=== PATIENT | female | born 1970 | race Hispanic/Latino ===

== ENCOUNTER 2017-09-05 10:13 | Day surgery (SDC) | payer OTHER, SELFPAY ==
[2017-09-05 10:35] VITALS: BMI 31.3
[2017-09-05] MEDS ORDERED: Sodium Chloride 0.9% 1,000 ML IV STA (10:53)
[2017-09-05] MEDS ORDERED: Etomidate 40 MG/20 ML ML IV ONE (11:18)
[2017-09-05] MEDS ORDERED: Succinylcholine 200 mg/10 ml Inj IV ONE (11:18)
[2017-09-05] MEDS ORDERED: Midazolam 2 MG/2 ML VIAL ONE (11:18)
[2017-09-05] MEDS ORDERED: Propofol 10 mg/ml Inj (20 ML) ONE ×2 (11:25→12:20)
[2017-09-05] MEDS ORDERED: Lactated Ringer's 1,000 ML IV SCH (11:30)
[2017-09-05 11:46] LABS: BASO # 0.03 K/mm3 (0.0-2.0); BASO % 0.5 % (0.0-3.0); EOS # 0.3 (0.0-0.7); EOS % 4.7 % (1.5-5.0); GRAN # 4.42 (1.4-6.5); HEMOGLOBIN 9.4 g/dL (12.0-16.0); LYMPH # 1.4 (1.2-3.4); LYMPH % 20.5 % (22.0-35.0); MEAN CORPUSCULAR HEMOGLOBIN 27.2 pg (25.0-35.0); MEAN CORPUSCULAR HGB CONC 31.3 g/dl (31.0-37.0); MEAN PLATELET VOLUME 9.2 fl (7.0-11.0); MONO # 0.5 (0.1-0.6); MONO % 7.3 % (1.0-6.0); RBC 3.45 10^6/uL (3.5-6.1); RED CELL DISTRIBUTION WIDTH 15.8 % (11.5-14.5); WHITE BLOOD COUNT 6.6 10^3/ul (4.5-11.0)
[2017-09-05 11:53] LABS: BLOOD UREA NITROGEN 11 mg/dL (7-21); CALCIUM 9.5 mg/dL (8.4-10.5); GFR AFRICAN-AMERICAN > 60; GFR NON-AFRICAN AMERICAN > 60
--- NOTE | 2017-09-05 12:00 | ED PDOC ---
Arrival/HPI - General Chief Complaint: Female Genitourinary Time Seen by Provider: 09/05/17 10:29 Historian: Patient - History of Present Illness Narrative History of Present Illness (Text): 09/05/17 10:50 A 47 year old female, whose past medical history includes thyroid disease and hypertension, presents to the emergency department complaining of vaginal bleeding for 1 month. Patient reports see COLORING ROOM MAN 2 days ago and was prescribed medication for bleeding. However, this week it has gotten progressively worse. Patient notes also experiencing associated weakness and lightheadedness, intermittent abdominal cramping, and blood clots in vaginal bleeding. No other complaints mentioned by patient. PMD: Dr. Priyank Briggs [facility] MAN: Dr. Vincenzo Nelson TRANSLATION used via [employer] translation service: #[id number] Time/Duration: Other (1 month) Past Medical History - Provider Review Nursing Documentation Reviewed: Yes - Infectious Disease Hx of Infectious Diseases: None - Tetanus Immunization Tetanus Immunization: Unknown - Reproductive Menopause: No - Cardiac Hx Pacemaker: No - Neurological Hx Paralysis: No - Endocrine/Metabolic Hx Hypothyroidism: Yes - Hematological/Oncological Hx Blood Transfusions: No - Musculoskeletal/Rheumatological Hx Musculoskeletal Disorders: No - Psychiatric Hx Emotional Abuse: No Hx Physical Abuse: No Hx Substance Use: No - Past Surgical History Past Surgical History: No Previous - Anesthesia Hx Anesthesia Reactions: No Hx Malignant Hyperthermia: No - Suicidal Assessment Feels Threatened In Home Enviroment: No Family/Social History - Physician Review Nursing Documentation Reviewed: Yes Family/Social History: No Known Family HX Smoking Status: Never Smoked Hx Alcohol Use: No Hx Substance Use: No Hx Substance Use Treatment: No Allergies/Home Meds Allergies/Adverse Reactions: Allergies No Known Allergies Allergy (Verified 12/12/11 07:05) Home Medications: Home Meds Medication Instructions Recorded Confirmed Nature Thyroid Half Grain 0 mg PO DAILY 09/05/17 09/05/17 Review of Systems - Physician Review All systems were reviewed & negative as marked: Yes - Review of Systems Gastrointestinal: Abdominal Pain (adbominal cramping) Genitourinary Female: Vaginal Bleeding (with blood clots) Neurological: Dizziness, Focal Weakness Physical Exam Vital Signs Reviewed: Yes Vital Signs Temp Pulse Resp BP Pulse Ox 09/05/17 15:09 97.9 F 84 20 138/89 94 L 09/05/17 14:06 97 09/05/17 14:00 97.9 F 74 18 142/97 H 97 09/05/17 13:49 98.2 F 60 17 120/75 100 09/05/17 13:35 98.2 F 63 17 129/65 100 09/05/17 13:20 98.2 F 63 17 135/84 100 09/05/17 13:05 98.2 F 71 17 134/84 100 09/05/17 12:50 98.2 F 78 16 136/84 100 09/05/17 12:00 97.8 F 91 H 20 148/90 97 09/05/17 11:33 82 18 160/103 H 100 09/05/17 11:18 98.9 F 98 H 18 191/100 H 100 09/05/17 10:51 98.1 F 100 H 18 186/120 H 98 Temperature: Afebrile Blood Pressure: Hypertensive Pulse: Regular Respiratory Rate: Normal Appearance: Positive for: Well-Appearing Pain Distress: None Mental Status: Positive for: Alert and Oriented X 3 - Systems Exam Head: Present: Atraumatic, Normocephalic Pupils: Present: PERRL Extroacular Muscles: Present: EOMI Conjunctiva: Present: Normal Mouth: Present: Moist Mucous Membranes Neck: Present: Normal Range of Motion Respiratory/Chest: Present: Clear to Auscultation, Good Air Exchange. No: Respiratory Distress, Accessory Muscle Use Cardiovascular: Present: Regular Rate and Rhythm, Normal S1, S2. No: Murmurs Abdomen: Present: Tenderness (lwoer abdominal tenderness). No: Guarding Back: Present: Normal Inspection Upper Extremity: Present: Normal Inspection. No: Cyanosis, Edema Lower Extremity: Present: Normal Inspection. No: Edema Neurological: Present: Other (experiences no lightheadedness when standing up) Skin: Present: Warm, Dry, Normal Color. No: Rashes Psychiatric: Present: Alert, Oriented x 3, Normal Insight, Normal Concentration Medical Decision Making ED Course and Treatment: 09/05/17 10:53 Impression: 47 year old female with vaginal bleeding and associated weakness and lightheadedness. Physical exam shows lower abdominal tenderness, no guarding. Differential Diagnosis included but are not limited to: Dysfunctional Urine Bleeding Plan: -- Labs -- Lactated Ringer IV -- IV Fluids -- Reassess and disposition Prior Visits: Notes and results from previous visits were reviewed. Patient was last seen in the emergency department on 06/26/2015 for moderate vaginal bleeding. Patient was discharged home. Progress Notes: Case discussed with Dr. Kowalski OBGYN, who requests patient to be admitted to [facility] for D&C. - Lab Interpretations Lab Results: 09/05/17 11:23 09/05/17 11:23 Lab Results 09/05/17 12:23: Urine HCG, Qual Negative 09/05/17 11:23: Blood Type A POSITIVE, Antibody Screen Negative, BBK History Checked No verified bt 09/05/17 11:23: PT 11.9, INR 1.03, APTT 28.1 09/05/17 11:23: Sodium 147, Potassium 4.3, Chloride 110 H, Carbon Dioxide 25, Anion Gap 17, BUN 11, Creatinine 0.6 L, Est GFR ( Amer) > 60, Est GFR ( Non-Af Amer) > 60, Random Glucose 99, Calcium 9.5 09/05/17 11:23: WBC 6.6 D, RBC 3.45 L, Hgb 9.4 L, Hct 30.0 L, MCV 87.0, MCH 27.2, MCHC 31.3, RDW 15.8 H, Plt Count 315, MPV 9.2, Gran % 67.0, Lymph % (Auto ) 20.5 L, Jerome % (Auto) 7.3 H, Eos % (Auto) 4.7, Baso % (Auto) 0.5, Gran # 4.42 , Lymph # (Auto) 1.4, Jerome # (Auto) 0.5, Eos # (Auto) 0.3, Baso # (Auto) 0.03 I have reviewed the lab results: Yes - Medication Orders Current Medication Orders: Acetaminophen (Tylenol 325mg Tab) 650 mg PO Q4H PRN PRN Reason: Pain, Mild (1-3) Lactated Ringer's (Lactated Ringer's) 1,000 mls @ 100 mls/hr IV .Q10H JENNIFER Last Admin: 09/05/17 11:36 Dose: 100 mls/hr eMAR Start Stop Document 09/05/17 11:36 GMD (Rec: 09/05/17 11:37 [id number] Intravenous Solution Start Date 09/05/17 Start Time 11:37 Sodium Chloride (Sodium Chloride 0.9%) 1,000 mls @ 100 mls/hr IV .Q10H JENNIFER Discontinued Medications Estrogens Conjugated (Premarin Iv) 25 mg IV ONCE ONE Stop: 09/05/17 12:55 Last Admin: 09/05/17 13:28 Dose: 25 mg Hydromorphone HCl (Dilaudid) 0.5 mg IVP Q15M PRN PRN Reason: Pain, severe (8-10) Stop: 09/05/17 14:51 Sodium Chloride (Sodium Chloride 0.9%) 1,000 mls @ 999 mls/hr IV .Q1H1M STA Stop: 09/05/17 11:53 Ondansetron HCl (Zofran Inj) 4 mg IVP ONCE PRN PRN Reason: Nausea/Vomiting Stop: 09/05/17 14:52 - Scribe Statement The provider has reviewed the documentation as recorded by the Kun Saravia Provider Scribe Attestation: All medical record entries made by the Mikieiblorena were at my direction and personally dictated by me. I have reviewed the chart and agree that the record accurately reflects my personal performance of the history, physical exam, medical decision making, and the department course for this patient. I have also personally directed, reviewed, and agree with the discharge instructions and disposition. Disposition/Present on Arrival - Present on Arrival Any Indicators Present on Arrival: No History of DVT/PE: No History of Uncontrolled Diabetes: No Urinary Catheter: No History of Decub. Ulcer: No History Surgical Site Infection Following: None - Disposition Have Diagnosis and Disposition been Completed?: Yes Diagnosis: Dysfunctional uterine bleeding, Hypertension Disposition: HOSPITALIZED Disposition Time: 11:22 Patient Plan: Admission Patient Problems: Current Active Problems Problem Status Onset Dysfunctional uterine bleeding Acute Hypertension Acute Condition: FAIR
[2017-09-05 12:15] LABS: INR 1.03 (0.93-1.08); PARTIAL THROMBOPLASTIN TIME 28.1 Seconds (25.1-36.5); PROTHROMBIN TIME 11.9 SECONDS (9.4-12.5)
[2017-09-05] MEDS ORDERED: HYDROmorphone 0.5 mg/0.5 ml ISec IVP PRN (12:51)
[2017-09-05] MEDS ORDERED: Sodium Chloride 0.9% 1,000 ML IV SCH (13:00)
[2017-09-05 14:06] VITALS: TEMP 97.9
[2017-09-05 15:10] VITALS: BP 138/89; PULSE 84; RESP 20; O2SAT 94
--- NOTE | 2017-09-05 22:42 | OP ---
PROCEDURE DATE: 09/05/2017 PREOPERATIVE DIAGNOSIS: Persistent and severe menorrhagia, resulting anemia. POSTOPERATIVE DIAGNOSIS: Persistent and severe menorrhagia, resulting anemia. PROCEDURE PERFORMED: Dilatation and curettage. SURGEON: Vincenzo Nelson MD. TYPE OF ANESTHESIA: General endotracheal. ESTIMATED BLOOD LOSS: 10 mL. FINDINGS: Uterus that was sounded to 9 cm. No fibroids palpated. Copious amounts of clots coming out of the vaginal area. DESCRIPTION OF PROCEDURE: After a long discussion was held with the patient and an informed consent was obtained and signed, patient was brought into the operating room. General endotracheal anesthesia was induced. The patient was prepped and draped in the usual sterile fashion. A weighted speculum was inserted into the vaginal vault. The anterior lip of the cervix was visualized and grasped with single-tooth tenaculum. The uterus was sounded and sounded to approximately to 9 cm. As a note, there were copious amounts of clots and blood, which were watery in nature, coming out of the cervix. The cervix was then dilated appropriately and a gentle curettage of the endometrial lining was taken. Clots were noted, removed, but it was felt that the lining of the uterus vascularity was not closing down. IV Premarin would be instilled in the recovery room. Once the procedure was terminated, all specimens were sent to Pathology for examination, the patient was awakened and sent to the Recovery Room. Vincenzo Nelson MD
== END 2017-09-05 15:41 | disposition home or self-care (01) ==
LOC: ED 10:13 → SDS 11:54
PROVIDERS: ATTEND Obstetrics & Gynecology Gynecology
DX: N92.0 Excessive and frequent menstruation with regular cycle (principal); N93.8 Other specified abnormal uterine and vaginal bleeding; D64.9 Anemia, unspecified; E03.9 Hypothyroidism, unspecified; I10 Essential (primary) hypertension
CPT/HCPCS: 58120; 80048; 84703; 85025; 85610; 85730; 86850; 86900; 88305; 99285; J0330; J1170; J1410; J2250; J2405; J2704; J2765; J3010; J7030; J7040; J7120 ×2

== ENCOUNTER 2018-01-23 17:21 | Emergency (ER) | payer OTHER ==
[2018-01-23 17:50] VITALS: RESP 18; BMI 27.4
[2018-01-23] MEDS ORDERED: DiphenhydrAMINE 50 mg/ml Inj IVP STA (18:10)
[2018-01-23 19:19] LABS: ALB/GLOB RATIO 1.3 (1.1-1.8); ALBUMIN 4.6 g/dL (3.0-4.8); ALT/SGPT 36 U/L (7-56); AST/SGOT 41 U/L (14-36); BLOOD UREA NITROGEN 12 mg/dL (7-21); CALCIUM 9.6 mg/dL (8.4-10.5); GFR AFRICAN-AMERICAN > 60; GFR NON-AFRICAN AMERICAN > 60
[2018-01-23 19:20] LABS: BASO # 0.04 K/mm3 (0.0-2.0); BASO % 0.4 % (0.0-3.0); EOS # 0.1 (0.0-0.7); EOS % 0.8 % (1.5-5.0); GRAN # 6.76 (1.4-6.5); GRAN % 74.4 % (50.0-68.0); HEMOGLOBIN 13.3 g/dL (12.0-16.0); LYMPH # 1.7 (1.2-3.4); LYMPH % 18.8 % (22.0-35.0); MEAN CORPUSCULAR HEMOGLOBIN 30.6 pg (25.0-35.0); MEAN CORPUSCULAR HGB CONC 34.7 g/dl (31.0-37.0); MEAN PLATELET VOLUME 9.4 fl (7.0-11.0); MONO # 0.5 (0.1-0.6); MONO % 5.6 % (1.0-6.0); RBC 4.35 10^6/uL (3.5-6.1); RED CELL DISTRIBUTION WIDTH 17.7 % (11.5-14.5); URINE BILIRUBIN NEGATIVE (NEGATIVE); URINE BLOOD NEGATIVE (NEGATIVE); URINE GLUCOSE (UA) NEGATIVE (NEGATIVE); URINE LEUKOCYTE ESTERASE NEGATIVE Leu/uL (NEGATIVE); URINE PROTEIN NEGATIVE mg/dL (<30 mg/dL); URINE UROBILINOGEN 0.2 E.U./dL (<1 E.U./dL); WHITE BLOOD COUNT 9.1 10^3/ul (4.5-11.0)
[2018-01-23 19:22] LABS: URINE APPEARANCE CLEAR (CLEAR); URINE COLOR YELLOW (YELLOW)
[2018-01-23 19:24] LABS: INR 0.96 (0.93-1.08); PARTIAL THROMBOPLASTIN TIME 29.3 Seconds (25.1-36.5); PROTHROMBIN TIME 10.9 SECONDS (9.4-12.5)
[2018-01-23 19:36] LABS: TROPONIN I < 0.01 ng/mL
--- NOTE | 2018-01-23 20:38 | ED PDOC ---
Arrival/HPI - General Chief Complaint: High Blood Pressure Time Seen by Provider: 01/23/18 17:46 Historian: Patient - History of Present Illness Narrative History of Present Illness (Text): 01/23/18 20:35 47yo female with past medical history of hypertension who present with complaint of right sided temporal and neck pain x 2days. she also report right lower leg pain. The friend who translated, states patient have had these symptoms intermittently for years. States she was seen by her PMD last week and all her lab result was negative. He notes that pt's PMD has been trying to control her BP with different antihypertensive. Her last Head CT was 4years ago. She have had the leg pain for over 6yrs, per the friend. She denies slurred speech, focal weakness, nuchal ridigity, visual acuity change, nausea, vomiting, chest pain, SOB, diaphoresis, dizziness, recent travel/surgery. States she took her BP medication today. Past Medical History - Provider Review Nursing Documentation Reviewed: Yes - Infectious Disease Hx of Infectious Diseases: None - Tetanus Immunization Tetanus Immunization: Unknown - Cardiac Hx Pacemaker: No - Neurological Hx Paralysis: No - Endocrine/Metabolic Hx Hypothyroidism: Yes - Hematological/Oncological Hx Blood Transfusions: No - Musculoskeletal/Rheumatological Hx Musculoskeletal Disorders: No - Psychiatric Hx Emotional Abuse: No Hx Physical Abuse: No Hx Substance Use: No - Past Surgical History Past Surgical History: No Previous - Anesthesia Hx Anesthesia Reactions: No Hx Malignant Hyperthermia: No - Suicidal Assessment Feels Threatened In Home Enviroment: No Family/Social History - Physician Review Nursing Documentation Reviewed: Yes Family/Social History: Unknown Family HX Smoking Status: Never Smoked Hx Alcohol Use: No Hx Substance Use: No Hx Substance Use Treatment: No Allergies/Home Meds Allergies/Adverse Reactions: Allergies No Known Allergies Allergy (Verified 12/12/11 07:05) Home Medications: Home Meds Medication Instructions Recorded Confirmed amLODIPine [Norvasc] 5 mg PO DAILY 01/23/18 01/23/18 Review of Systems - Physician Review All systems were reviewed & negative as marked: Yes - Review of Systems Constitutional: Normal Eyes: Normal ENT: Normal Respiratory: Normal Cardiovascular: Normal Gastrointestinal: Normal Genitourinary Female: Normal Musculoskeletal: Arthralgias (right leg pain) Skin: Normal Neurological: Headache. absent: Dizziness, Focal Weakness, Gait Changes, Speech Changes, Facial Droop Endocrine: Normal Hemo/Lymphatic: Normal Psychiatric: Normal Physical Exam Vital Signs Reviewed: Yes Vital Signs Temp Pulse Resp BP Pulse Ox 01/23/18 20:59 98.2 F 78 18 141/95 H 96 01/23/18 20:44 98.2 F 71 18 141/95 H 95 01/23/18 20:22 77 153/93 H 01/23/18 20:20 98.3 F 77 18 153/93 H 100 01/23/18 19:14 98.3 F 86 18 148/101 H 96 01/23/18 17:49 98.3 F 84 18 180/109 H 97 Temperature: Afebrile Blood Pressure: Hypertensive Pulse: Regular Respiratory Rate: Normal Appearance: Positive for: Well-Appearing, Non-Toxic, Comfortable Pain Distress: None Mental Status: Positive for: Alert and Oriented X 3 - Systems Exam Head: Present: Atraumatic, Normocephalic Pupils: Present: PERRL Extroacular Muscles: Present: EOMI Conjunctiva: Present: Normal Mouth: Present: Moist Mucous Membranes Neck: Present: Normal Range of Motion Respiratory/Chest: Present: Clear to Auscultation, Good Air Exchange. No: Respiratory Distress, Accessory Muscle Use Cardiovascular: Present: Regular Rate and Rhythm, Normal S1, S2. No: Murmurs Abdomen: No: Tenderness, Distention, Peritoneal Signs Back: Present: Normal Inspection Upper Extremity: Present: Normal Inspection. No: Cyanosis, Edema Lower Extremity: Present: CALF TENDERNESS (Right calf), NORMAL PULSES, Normal ROM, Neurovascularly Intact. No: Edema, Guido's Sign, Tenderness, Swelling, Temperature Abnormalties Neurological: Present: GCS=15, CN II-XII Intact, Speech Normal, Motor Func Grossly Intact, Normal Sensory Function, Normal Cerebellar Funct, Norm Deep Tendon Reflexes, Gait Normal, Memory Normal, Normal 2Pt Descrimination, Other ( No focal neurological deficit) Skin: Present: Warm, Dry, Normal Color. No: Rashes Psychiatric: Present: Alert, Oriented x 3, Normal Insight, Normal Concentration Medical Decision Making ED Course and Treatment: 01/23/18 20:32 PT present with stated history. She was neurologically intact in emergency department . Her BP improved slightly in emergency department after her headache improved with medication and she was given Clonidine. Her lab was unremarkable Pr US tech - Doppler was negative for DVT Head CT pending 01/23/18 20:39 IMPRESSION: No acute intracranial abnormalities. Result was DW both pt and the friend. She remained neurologically intact. Her headache improved. she had no meningeal signs in emergency department . Afebrile with no rash. The friend notes that pt is always worrying that something is wrong with her. This could be causing her stress and leading to her symptoms. The friend notes that she have a PMD and have been seeing the PMD for years now. States pt has been seen by the PMD for similar symptoms. She will be DC home. Referred to her PMD. - Lab Interpretations Lab Results: 01/23/18 18:51 01/23/18 18:51 Lab Results 01/23/18 18:51: Sodium 144, Potassium 4.0, Chloride 106, Carbon Dioxide 26, Anion Gap 16, BUN 12, Creatinine 0.8, Est GFR ( Amer) > 60, Est GFR (Non- Af Amer) > 60, Random Glucose 109, Calcium 9.6, Magnesium 2.1, Total Bilirubin 0.9, AST 41 H, ALT 36, Alkaline Phosphatase 42, Lactate Dehydrogenase 559, Total Creatine Kinase 478 H, CK-MB (CK-2) 4.0 H, CK-MB (CK-2) % Cancelled, Troponin I < 0.01, Total Protein 8.2, Albumin 4.6, Globulin 3.6, Albumin/ Globulin Ratio 1.3 01/23/18 18:51: Urine Color Yellow, Urine Appearance Clear, Urine pH 6.0, Ur Specific Johnson <= 1.005, Urine Protein Negative, Urine Glucose (UA) Negative, Urine Ketones 15 H, Urine Blood Negative, Urine Nitrate Negative, Urine Bilirubin Negative, Urine Urobilinogen 0.2, Ur Leukocyte Esterase Negative 01/23/18 18:51: PT 10.9, INR 0.96, APTT 29.3 01/23/18 18:51: WBC 9.1 D, RBC 4.35, Hgb 13.3 D, Hct 38.3, MCV 88.0, MCH 30.6 , MCHC 34.7, RDW 17.7 H, Plt Count 314, MPV 9.4, Gran % 74.4 H, Lymph % (Auto) 18.8 L, [place] % (Auto) 5.6, Eos % (Auto) 0.8 L, Baso % (Auto) 0.4, Gran # 6.76 H , Lymph # (Auto) 1.7, [place] # (Auto) 0.5, Eos # (Auto) 0.1, Baso # (Auto) 0.04 - RAD Interpretation Radiology Orders: 01/23/18 18:39 HEAD W/O CONTRAST [CT] Stat DUPLEX LOWER EXTRM VEIN RIGHT [US] Stat - Medication Orders Current Medication Orders: Discontinued Medications Acetaminophen (Tylenol 325mg Tab) 975 mg PO STAT STA Stop: 01/23/18 18:11 Last Admin: 01/23/18 18:36 Dose: 975 mg MAR Pain/Vitals Document 01/23/18 18:36 LA (Rec: 01/23/18 18:36 LA [facility]) Pain Reassessment Is This A Pain ReAssessment? No Sleep Is patient sleeping during reassessment? No Presence of Pain Presence of Pain Yes Pain Scale Used Pain Scale Used Numeric Location Left, Right or Bilateral Right Pain Location Body Head Start Coordinator Description Constant Intensity 6 Scale Used Numeric Re-Assess: MAR Pain/Vitals Document 01/23/18 19:36 LA (Rec: 01/23/18 20:23 [email or web address] Pain Reassessment Is This A Pain ReAssessment? Yes Sleep Is patient sleeping during reassessment? No Presence of Pain Presence of Pain Yes Pain Scale Used Pain Scale Used Numeric Location Left, Right or Bilateral Right Pain Location Body Head Start Coordinator Description Constant Intensity 4 Scale Used Numeric Clonidine HCl (Catapres) 0.1 mg PO STAT STA Stop: 01/23/18 20:03 Last Admin: 01/23/18 20:22 Dose: 0.1 mg MAR Pulse and Blood Pressure Document 01/23/18 20:22 LA (Rec: 01/23/18 20:23 LA [email or web address]) Pulse Pulse Rate (60-90) 77 Blood Pressure Blood Pressure (100/60-150/90) 153/93 Diphenhydramine HCl (Benadryl) 25 mg IVP STAT STA Stop: 01/23/18 18:11 Last Admin: 01/23/18 18:37 Dose: 25 mg IVP Administration Document 01/23/18 18:37 LA (Rec: 01/23/18 18:37 LA [email or web address]) Charges for Administration # of IVP Administrations 1 Disposition/Present on Arrival - Present on Arrival Any Indicators Present on Arrival: No History of DVT/PE: No History of Uncontrolled Diabetes: No Urinary Catheter: No History of Decub. Ulcer: No History Surgical Site Infection Following: None - Disposition Have Diagnosis and Disposition been Completed?: Yes Diagnosis: Headache, Hypertension Disposition: HOME/ ROUTINE Disposition Time: 20:45 Patient Plan: Discharge Condition: STABLE Discharge Instructions (ExitCare): High Blood Pressure in Adults, DASH Diet, Headache, Adult (DC) Additional Instructions: Follow up with your Doctor/Neurologist Return to emergency department for any new or worsening symptoms Prescriptions: Ibuprofen [Motrin Tab] 600 mg PO Q6 #15 tab Referrals: Priyank Briggs MD, PhD [Primary Care Provider] - Follow up with primary Francisco Wynn MD [Staff Provider] - Follow up with primary Forms: [employer] ([employer])
[2018-01-23 20:45] VITALS: BP 141/95; TEMP 98.2
[2018-01-23 20:59] VITALS: PULSE 78; O2SAT 96
--- NOTE | 2018-01-24 08:21 | CT ---
PROCEDURE: CT HEAD WITHOUT CONTRAST. HISTORY: headache COMPARISON: 10/25/2014 TECHNIQUE: Axial computed tomography images were obtained through the head/brain without intravenous contrast. Radiation dose: Total exam DLP = 1028.02 mGy-cm. This CT exam was performed using one or more of the following dose reduction techniques: Automated exposure control, adjustment of the mA and/or kV according to patient size, and/or use of iterative reconstruction technique. FINDINGS: HEMORRHAGE: No intracranial hemorrhage. BRAIN: No mass effect or edema. No atrophy or chronic microvascular ischemic changes. VENTRICLES: Unremarkable. No hydrocephalus. CALVARIUM: Unremarkable. PARANASAL SINUSES: Unremarkable as visualized. No significant inflammatory changes. MASTOID AIR CELLS: Unremarkable as visualized. No inflammatory changes. OTHER FINDINGS: None. IMPRESSION: Normal CT of the Head. No intracranial mass, hemorrhage or evidence of acute infarct. Preliminary interpretation of this examination was reported by [facility] at 8:37 p.m. on 01/23/2018. There is concurrence of this report with the preliminary interpretation.
--- NOTE | 2018-01-24 09:19 | US ---
PROCEDURE: Right lower extremity venous US HISTORY: Leg pain and swelling. Evaluate for DVT. PHYSICIAN(S): Yayo Walden M.D. TECHNIQUE: Duplex sonography and color-flow Doppler with graded compression were used to evaluate the deep venous system of the right lower extremity. FINDINGS: The visualized deep venous system of the right lower extremity is sonographically normal and compressible. Normal waveforms and augmentation are seen. There is no sonographic evidence for deep venous thrombosis in the visualized segments of the right lower extremity. IMPRESSION: 1. No sonographic evidence for deep venous thrombosis in the visualized segments of the right lower extremity.
--- NOTE | 2018-01-24 22:26 | CARD ---
APPROVED REPORT EKG Measurement Heart [id number] <Conclusion> Normal sinus rhythm Cannot rule out Anterior infarct, age undetermined Abnormal ECG
== END 2018-01-23 20:59 | disposition home or self-care (01) ==
LOC: ED 17:21
DX: I10 Essential (primary) hypertension (principal); R51 Headache; E03.9 Hypothyroidism, unspecified
CPT/HCPCS: 70450; 80053; 81003; 82550; 82553; 83615; 83735; 84484; 85025; 85610; 85730; 93005; 93971; 96374; 99284; J1200

== ENCOUNTER 2018-08-21 10:28 | Outpatient (CLI) | payer OTHER | END 2018-08-21 10:29 | disposition home or self-care (01) | LOC: RAD 10:28 ==

== ENCOUNTER 2018-08-27 12:15 | Outpatient (CLI) | payer OTHER | END 2018-08-27 12:16 | disposition home or self-care (01) | LOC: CARDIO 12:15 ==

== ENCOUNTER 2018-08-29 07:24 | Day surgery (SDC) | payer MEDICAID, OTHER ==
[2018-08-27 09:12] VITALS: BMI 31.9
[2018-08-29] MEDS ORDERED: Desflurane Inhalation Anesthetic Liq (240 ml) ONE (08:47)
[2018-08-29] MEDS ORDERED: Propofol 10 mg/ml Inj (20 ML) ONE (08:47)
[2018-08-29] MEDS ORDERED: Succinylcholine 200 mg/10 ml Inj IV ONE (08:48)
[2018-08-29] MEDS ORDERED: Rocuronium 10 mg/ml (5 ml) ONE (08:48)
[2018-08-29] MEDS ORDERED: CeFAZolin 1 gm in NS 100ml IVPB ONE (09:10)
[2018-08-29] MEDS ORDERED: Bupivacaine Liposomal Inj 20 ml ONE (09:26)
[2018-08-29] MEDS ORDERED: Neostigmine Methylsulfate 3mg/3ml Syringe IV ONE (10:09)
[2018-08-29] MEDS ORDERED: Bupivacaine Liposomal Inj 20 ml INJ ONE (10:42)
[2018-08-29] MEDS ORDERED: HYDROmorphone 1 mg/ml PCA IV PRN (11:08)
[2018-08-29] MEDS ORDERED: Lactated Ringer's 1,000 ML IV SCH (11:15)
[2018-08-29] MEDS: HYDROmorphone 0.5 mg/0.5 ml ISec IVP PRN ×2 (11:15→11:34)
[2018-08-29] MEDS ORDERED: HYDROmorphone 1 mg/ml PCA 30 ML IV PRN (11:27)
[2018-08-29] MEDS ORDERED: oxyCODONE 5 mg Immediate Release Tab PO PRN (11:30)
[2018-08-29] MEDS ORDERED: HYDROmorphone 0.5 mg/0.5 ml ISec ONE (11:39)
[2018-08-29] MEDS ORDERED: HYDROmorphone 0.2 mg/ml (30ml) 30 ML IV ONE (11:44)
--- NOTE | 2018-08-29 11:51 | PCM.SURG1 ---
Surgeon's Initial Post Op Note - Surgeon's Notes Surgeon: Dr. Nelson Program Support Clerk: PGY2 Type of Anesthesia: General Endo Anesthesia Administered By: Dr. Maurice Pre-Operative Diagnosis: 1. Menorrhagia 2. Adenomyosis 3. Fibroids Operative Findings: for details see op note Post-Operative Diagnosis: as above Operation Performed: 1. Mercado Placement. 2. Supraservical Hysterectomy Specimen/Specimens Removed: Hysterectomy & b/l fallopian tubes Estimated Blood Loss: EBL {In ML}: 5 Drains Used: No Drains Post-Op Condition: Good Date of Surgery/Procedure: 08/29/18 Time of Surgery/Procedure: 11:51
[2018-08-29 23:15] VITALS: RESP 18
--- NOTE | 2018-08-30 05:00 | CP.PCM.DIS ---
Provider - Provider Date of Admission: 08/29/18 07:24 Attending physician: Vincenzo Nelson MD Primary care physician: Priyank Briggs MD Phd Time Spent in preparation of Discharge (in minutes): 27 Hospital Course - Lab Results Lab Results: Most Recent Lab Values Urine HCG, Qual Negative (NEGATIVE) 08/29/18 07:45 Blood Type A POSITIVE 08/29/18 07:45 Antibody Screen Negative 08/29/18 07:45 BBK History Checked Patient has bt 08/29/18 07:45 - Hospital Course Hospital Course: 48F hx of menorraghia, adenomyosis, fibroids admitted same day surgery s/p open supracervical hysterectomy. Patient tolerated procedure well. was on IV pain control post operatively. appropriately de-escalated to PO analgesia. +OOB and ambulating. denies nasuea vomiting, fevers, chills, chest pain, shortness of breath. Patient was cleared for discharge and set to follow up with Dr. Nelson in clinic. Discharge Exam - Head Exam Head Exam: ATRAUMATIC - Eye Exam Eye Exam: EOMI - ENT Exam ENT Exam: Mucous Membranes Moist - Respiratory Exam Respiratory Exam: NORMAL BREATHING PATTERN. absent: Accessory Muscle Use, Respiratory Distress - Cardiovascular Exam Cardiovascular Exam: REGULAR RHYTHM. absent: Bradycardia, Tachycardia - GI/Abdominal Exam GI & Abdominal Exam: Soft, Tenderness (thuy-incisional tenderness). absent: Distended, Firm, Guarding, Hernia - Neurological Exam Neurological exam: Alert, Oriented x3 - Skin Skin Exam: Intact, Warm Discharge Plan - Follow Up Plan Condition: GOOD Disposition: HOME/ ROUTINE Additional Instructions: follow up w/ Dr. Nelson in clinic. Keep dressings on and in place till follow up w/ Dr. Nelson or his permission to remove dressing. if fever > 100.4 take Tylenol, if fever persists go to the ER Referrals: Priyank Briggs MD, PhD [Primary Care Provider] - Vincenzo Nelson MD [Staff Provider] -
[2018-08-30 06:20] VITALS: BP 115/69; PULSE 61; TEMP 97.1; O2SAT 97
--- NOTE | 2018-08-30 07:38 | OP ---
PROCEDURE DATE: 08/29/2018 PREOPERATIVE DIAGNOSES: 1. Persistent menometrorrhagia. 2. Fibroid uterus. 3. Adenomyosis. OPERATION PERFORMED: Laparotomy, supracervical abdominal hysterectomy with bilateral salpingectomies. SURGEON: Rey Nelson MD [employer] PERFORATOR SURGEON: Kody Lakhani DO ANESTHESIA: General endotracheal. ESTIMATED BLOOD LOSS: 20 mL. FINDINGS: Normal-appearing ovaries and salpinges, uterus soft with signs of adenomyosis and a fibroid, measuring approximately 10 weeks in size. DESCRIPTION OF THE PROCEDURE: The procedure went as follows: After a long discussion was held with the patient, the patient agreed to the surgery and signed the consent. She was brought into operating room. General endotracheal anesthesia was induced. The patient was prepped and draped in the usual sterile fashion. Mercado catheter was inserted. A Pfannenstiel skin incision was made. The incision was brought down to the fascia. The fascia was opened. Rectus muscle was split. Peritoneum was visualized, grasped with hemostats and opened superiorly and inferiorly avoiding the bladder. Entrance into the pelvic cavity, the uterus was examined again and found to be approximately 10 weeks in size with a centralized fibroid and also noted to have sponginess and signs of possible adenomyosis. Both ovaries were examined and no cysts noted. Ovaries were normal. Right and left salpinges were normal. With the bowel packed back and an O'Rivera-O'Styles retractor inserted, the uterus was elevated upwards. Using LigaSure device, the round ligament, ovarian ligament and salpinges were clamped, cut and fired upon. Hemostasis was excellent throughout this entire time. Once the cardinal ligament area was reached, bladder flap was created in the vesicouterine fold after which a set of Kian's were used to grab the cardinal ligaments. They were clamped, cut and tied with 0 Vicryl suture. Again, hemostasis was excellent throughout this entire time. The uterus was then transected from the cervix with a cautery device. Specimens were sent to Pathology for examination. This was followed with cauterization of the endocervical canal. A 0 Vicryl was used to imbricate the cervical stump. Again, hemostasis was excellent. The pelvis at this timeframe was re-examined for any possible bleeding points and none noted. Salpinges at this time were elevated with Namrata, and salpingectomies were performed. Those specimens were sent to Pathology for examination. Pelvis was irrigated, suctioned dry. No bleeding noted. All instruments and laps were removed and accounted for. Peritoneum was closed with a 2-0 chromic. Fascia was closed with 0 Vicryl. Subcu was closed with a 2-0 plain, and a 4-0 Monocryl was used to close the skin. As a note, Exparel 20 mL was injected into the fascia for postoperative pain. The procedure was tolerated very well by the patient. She was gently awakened, sent to the recovery room in stable condition. Rey Nelson MD
[2018-08-30 08:08] LABS: HEMOGLOBIN 11.2 g/dL (12.0-16.0); MEAN CELL VOLUME 92.1 fl (80.0-105.0); MEAN CORPUSCULAR HEMOGLOBIN 30.6 pg (25.0-35.0); MEAN CORPUSCULAR HGB CONC 33.2 g/dl (31.0-37.0); MEAN PLATELET VOLUME 9.1 fl (7.0-11.0); RBC 3.66 10^6/uL (3.5-6.1); RED CELL DISTRIBUTION WIDTH 14.6 % (11.5-14.5); WHITE BLOOD COUNT 11.5 10^3/uL (4.5-11.0)
[2018-08-30] MEDS ORDERED: Magnesium Oxide 400 mg Tab UD PO SCH (10:00)
[2018-08-30] MEDS ORDERED: Levothyroxine 150 MCG TAB PO SCH (10:00)
== END 2018-08-30 13:01 | disposition home or self-care (01) ==
LOC: SDS 07:24 → SDAINP 07:24 → UNDOADMIN 07:24 → EDSTATUS 09:00 → 5RSO 12:37 → SDAINP 12:37 → 5RSO 12:37 → UNDODISIN 08-30 13:01 → SDS 08-30 13:01
PROVIDERS: ATTEND Obstetrics & Gynecology Gynecology
DX: D25.9 Leiomyoma of uterus, unspecified (principal); N80.0 Endometriosis of uterus; N92.1 Excessive and frequent menstruation with irregular cycle; D64.9 Anemia, unspecified; I10 Essential (primary) hypertension; E03.9 Hypothyroidism, unspecified
CPT/HCPCS: 36415 ×2; 58180; 84703; 85027; 86850; 86900; 88307; J0131; J0330; J0690; J1170 ×2; J2001; J2405; J2704; J2710; J3010; J7120 ×2

== ENCOUNTER 2018-09-15 11:14 | Inpatient (IN) | payer MEDICAID, OTHER | END 2018-09-17 19:13 | disposition home or self-care (01) | LOC: ERH 09-16 00:10 → 3RNO 09-16 01:00 → ED 11:14 → ERH 22:05 ==

== ENCOUNTER 2018-12-18 08:41 | Outpatient (CLI) | payer SELFPAY | END 2018-12-18 08:42 | disposition home or self-care (01) | LOC: RAD 08:41 ==